=== PATIENT | female | born 1975 | race African-American/Black ===

== ENCOUNTER 2019-02-25 10:08 | Emergency (ER) | payer OTHER ==
[2019-02-25 10:15] VITALS: BP 147/59; PULSE 68; TEMP 97.6; BMI 27.4
[2019-02-25] MEDS ORDERED: ACETAMINOPHEN 1000 MG/100 ML VIAL (NON FORMULARY) IVPB ONE (10:41)
[2019-02-25] MEDS ORDERED: ACETAMINOPHEN 500 MG TABLET (FP) PO ONE (10:53)
[2019-02-25] MEDS ORDERED: ACETAMINOPHEN 325 MG TABLET (FP) ONE (10:57)
--- NOTE | 2019-02-25 11:22 | PDOC ---
History of Present Illness - General Chief Complaint: Headache Stated Complaint: HEADACHE Time Seen by Provider: 02/25/19 10:21 Exam Limitations: No Limitations - History of Present Illness Initial Comments: 02/25/19 11:05 43-year-old female presents the emergency room with complaints of frontal throbbing pressure to her forehead for The past week and blurry vision when using her new reading glasses. Patient otherwise does not complain of dizziness , nausea, visual changes 1 not reading, fever, chills or my head injury, dizziness, neck pain ear pain or dental pain. Patient states has taken nothing for the above and decided to come to the ER today. Timing/Duration: reports: 1 week Severity: Yes: mild Associated Symptoms: reports: vision changes (when using reading glasses), other (headaches) Past History - Travel Traveled outside of the country in the last 30 days: No Close contact w/someone who was outside of country & ill: No - Past Medical History Allergies/Adverse Reactions: Allergies Allergy/AdvReac Type Severity Reaction Status Date / Time Penicillins Allergy Swelling Verified 12/09/15 14:03 Home Medications: Ambulatory Orders Famotidine [Pepcid -] 40 mg PO DAILY #10 tablet 09/27/14 Metformin HCl [Glucophage] 500 mg PO DAILY 01/09/15 Quinapril HCl [Accupril -] 20 mg PO DAILY 12/09/15 Gabapentin [Neurontin -] 100 mg PO HS 12/10/15 Sertraline HCl [Zoloft -] 100 mg PO DAILY 12/10/15 Metronidazole [Flagyl] 500 mg PO TID #21 tablet 12/13/15 levoFLOXacin [Levofloxacin] 500 mg PO DAILY #7 ml 12/13/15 oxyCODONE HCL [Roxicodone -] 5 mg PO Q4H PRN #30 tablet 12/13/15 Cancer: No COPD: No Diabetes: Yes HTN: Yes - Reproductive History (#): 2 Para: 2 - Immunization History Immunization Up to Date: No - Suicide/Smoking/Psychosocial Hx Smoking History: Never smoked Have you smoked in the past 12 months: No Information on smoking cessation initiated: No Hx Alcohol Use: No Drug/Substance Use Hx: No Substance Use Type: None Hx Substance Use Treatment: No Patient Lives Alone: No Lives with/in: spouse/SO Neuro Specific PMHX - Complaint Specific PMHX Other Neuro History: headache Review of Systems - Review of Systems Able to Perform ROS?: Yes Constitutional: No: Symptoms Reported HEENTM: Yes: Blurred Vision Respiratory: No: Symptoms reported Cardiac (ROS): No: Symptoms Reported ABD/GI: No: Symptoms Reported : No: Symptoms Reported Musculoskeletal: No: Symptoms Reported Integumentary: No: Symptoms Reported Neurological: Yes: Headache. No: Numbness, Paresthesia, Weakness, Dizziness Hematologic/Lymphatic: No: Symptoms Reported *Physical Exam - Vital Signs Last Vital Signs Temp Pulse Resp BP Pulse Ox 97.6 F 68 18 147/59 L 100 02/25/19 10:12 02/25/19 10:12 02/25/19 10:12 02/25/19 10:12 02/25/19 10:12 - Physical Exam General Appearance: Yes: Nourished, Appropriately Dressed. No: Apparent Distress HEENT: positive: EOMI, BETTY, TMs Normal, Pharynx Normal. negative: Pale Conjunctivae Neck: positive: Normal Thyroid, Supple Respiratory/Chest: positive: Lungs Clear, Normal Breath Sounds. negative: Respiratory Distress, Accessory Muscle Use Cardiovascular: positive: Regular Rhythm, Regular Rate. negative: Murmur Gastrointestinal/Abdominal: positive: Soft. negative: Tenderness Integumentary: positive: Normal Color, Warm Neurologic: positive: Motor Strength 5/5 (ambulatory) ED Treatment Course - RADIOLOGY Radiology Studies Ordered: Category Date Time Status HEAD CT WITHOUT CONTRAST [CT] Stat CT Scan 02/25/19 10:40 Ordered - Medications Given in the ED: ED Medications Discontinued Medications Generic Name Dose Route Start Last Admin Trade Name Anh PRN Reason Stop Dose Admin Acetaminophen 1,000 mg 02/25/19 10:41 02/25/19 10:58 Ofirmev Injection - IVPB 02/25/19 10:42 Not Given ONCE ONE Acetaminophen 975 mg 02/25/19 10:53 02/25/19 10:57 Tylenol - PO 02/25/19 10:54 975 mg ONCE ONE Administration Medical Decision Making - Medical Decision Making 02/25/19 11:00 chief complaint: Frontal throbbing pressure for the past week without aggravating or alleviating factors but also does complain of blurry vision while using her new reading glasses exam: No neuro focal deficit no ENT involvement, vital signs stable. Plan: Urine culture was Tylenol and head CT 02/25/19 11:34 Laboratory Tests 02/25/19 10:48 Urine HCG, Qual Negative 02/25/19 12:02 T shows no evidence of acute infarction, and canal hemorrhage, edema midline shift mass effect or skull fracture. Patient states feeling better after receiving Tylenol. Will discharge patient home with recommendations to continue with Tylenol *DC/Admit/Observation/Transfer Diagnosis at time of Disposition: Headache - Discharge Dispostion Disposition: HOME Condition at time of disposition: Improved - Referrals - Patient Instructions Printed Discharge Instructions: DI for Hormonal and Tension Headaches Additional Instructions: I recommend taking Tylenol 975-1000 mg every 8 hours for headache. Please follow-up with your doctor as needed and return to ED if symptoms worsen. - Post Discharge Activity
[2019-02-25 11:25] LABS: EPI CELLS 17.7 /HPF (0-5/HPF); URINE APPEARANCE CLOUDY; URINE BILIRUBIN NEGATIVE (NEGATIVE); URINE CASTS 21 /lpf (0-8); URINE COLOR YELLOW; URINE GLUCOSE (UA) NEGATIVE (NEGATIVE); URINE KETONE NEGATIVE (NEGATIVE); URINE LEUK ESTERASE 2+ (NEGATIVE); URINE NITRITE NEGATIVE (NEGATIVE); URINE PROTEIN 1+ (NEGATIVE); URINE RBC 2 /hpf (0-4); URINE UROBILINOGEN 0.2 mg/dL (0.2-1.0); URINE WBC 84 /hpf (0-5)
[2019-02-25 11:26] LABS: HCG,QUALITATIVE URINE Negative
== END 2019-02-25 12:09 | disposition home or self-care (01) ==
LOC: JER 10:08
DX: R51 Headache (principal); I10 Essential (primary) hypertension; E11.9 Type 2 diabetes mellitus without complications; Z79.84 Long term (current) use of oral hypoglycemic drugs
CPT/HCPCS: 70450-TC; 81003; 84703; 99282-25

== ENCOUNTER 2019-11-21 09:27 | Emergency (ER) | payer OTHER ==
[2019-11-21 09:36] VITALS: TEMP 98; BMI 30.9
[2019-11-21 10:12] VITALS: BP 131/73; PULSE 69
--- NOTE | 2019-11-21 10:34 | PDOC ---
History of Present Illness - General Chief Complaint: Blood Pressure Problem Stated Complaint: HYPERTENSION Time Seen by Provider: 11/21/19 09:52 History Source: Patient Exam Limitations: No Limitations - History of Present Illness Initial Comments: 11/21/19 10:17 43-year-old female presents to the ED with c/o intermittent since September and today felt dizzy while in kitchen and took her bp which was 156/105. Pt states was on BP meds last year but stopped over 6 months since her blood work and bp were well controlled and she began to diet. Pt denies headache, nausea, cp, fever, abd pain, urinary or bowel complaints. Is this a multiple visit Asthma Patient?: No Timing/Duration: intermittent Severity: mild Modifying Factors: improves with: other Associated Symptoms: reports: other (dizziness) Past History - Travel Traveled outside of the country in the last 30 days: No Close contact w/someone who was outside of country & ill: No - Past Medical History Allergies/Adverse Reactions: Allergies Allergy/AdvReac Type Severity Reaction Status Date / Time Penicillins Allergy Swelling Verified 11/21/19 09:32 Home Medications: Ambulatory Orders Albuterol Sulfate Inhaler - [Ventolin Hfa Inhaler -] 1 - 2 inh PO Q4H PRN Mometasone/Formoterol [Dulera 100 Mcg/5 Mcg Inhaler] 2 inh IH BID 11/21/19 Anemia: Yes Cancer: No COPD: No Diabetes: Yes HTN: Yes (not on meds) - Surgical History Gastric Stapling: Yes - Reproductive History (#): 2 Para: 2 - Immunization History Immunization Up to Date: No - Psycho Social/Smoking Cessation Hx Smoking History: Never smoked Have you smoked in the past 12 months: No Hx Alcohol Use: No Drug/Substance Use Hx: No Substance Use Type: None Hx Substance Use Treatment: No Patient Lives Alone: No Lives with/in: spouse/SO Review of Systems - Review of Systems Able to Perform ROS?: No Is the patient limited Malagasy proficient: No Constitutional: No: Symptoms Reported HEENTM: No: Symptoms Reported Respiratory: No: Symptoms reported Cardiac (ROS): Yes: Symptoms Reported. No: Lightheadedness ABD/GI: No: Symptoms Reported : No: Symptoms Reported Musculoskeletal: No: Symptoms Reported Integumentary: No: Symptoms Reported Neurological: Yes: Dizziness. No: Headache, Numbness, Weakness *Physical Exam - Vital Signs Last Vital Signs Temp Pulse Resp BP Pulse Ox 98 F 69 18 131/73 100 11/21/19 09:30 11/21/19 10:11 11/21/19 10:11 11/21/19 10:11 11/21/19 10:11 - Physical Exam General Appearance: Yes: Nourished, Appropriately Dressed. No: Apparent Distress HEENT: positive: EOMI, BETTY, TMs Normal, Pharynx Normal. negative: Pale Conjunctivae Neck: positive: Normal Thyroid, Supple Respiratory/Chest: positive: Lungs Clear, Normal Breath Sounds. negative: Respiratory Distress, Accessory Muscle Use Cardiovascular: positive: Regular Rhythm, Regular Rate. negative: Murmur Gastrointestinal/Abdominal: positive: Soft. negative: Tenderness Integumentary: positive: Normal Color, Warm, Moist Neurologic: positive: Motor Strength 5/5 (ambulatory) Heart Score/ECG Review - ECG Intrepretation Rhythm: Regular Rhythm (nsr at 62, no st elevation or depression) Medical Decision Making - Medical Decision Making 11/21/19 10:45 Chief complaint: Here for blood pressure check secondary to feeling dizzy. Patient has no other complaints and last seen her GP in early September. Patient states no medication adjustment at that time but states dizziness started shortly thereafter which is intermittent without aggravating or alleviating factors. Patient asymptomatic since arrival Exam: Patient on no neurofocal deficits vital signs stable, patient negative Hallpike's, EKG normal sinus rhythm care. [facility] 92 plan: Discharge home and recommend to follow-up with GP for a 3-month checkup 11/21/19 10:46 Discharge - Discharge Information Problems reviewed: Yes Clinical Impression/Diagnosis: Dizziness Condition: Improved - Follow up/Referral Referrals: Mann Cardenas MD [Primary Care Provider] - - Patient Discharge Instructions Patient Printed Discharge Instructions: Getting to the Heart of a Healthful Diet Additional Instructions: Continue to follow a low-fat and low sugar diet. Patient is to follow-up with her primary care physician for repeat labs and physical. - Post Discharge Activity
--- NOTE | 2019-11-21 14:07 | EKG ---
Test Reason : Blood Pressure : / mmHG Vent. Rate : 062 BPM Atrial Rate : 062 BPM P-R Int : 178 ms QRS Dur : 080 ms QT Int : 390 ms P-R-T Axes : 049 039 031 degrees QTc Int : 395 ms NORMAL SINUS RHYTHM NORMAL ECG Confirmed by MD BOSCH GREGORY ([id number]) on 11/21/2019 2:07:27 PM Referred By: Confirmed By:STEVEN BOSCH MD
== END 2019-11-21 11:03 | disposition home or self-care (01) ==
LOC: JER 09:27
DX: I10 Essential (primary) hypertension (principal); E11.9 Type 2 diabetes mellitus without complications; Z86.2 Personal history of diseases of the blood and blood-forming organs and certain disorders involving the immune mechanism; Z88.0 Allergy status to penicillin
CPT/HCPCS: 82962; 93005; 93010; 99284-25

== ENCOUNTER 2021-01-22 11:03 | Emergency (ER) | payer OTHER ==
[2021-01-22 11:25] VITALS: BP 135/73; PULSE 77; TEMP 98.1; BMI 32.4
== END 2021-01-22 12:40 | disposition home or self-care (01) ==
LOC: JER 11:03
DX: J31.0 Chronic rhinitis (principal); Z11.52 Encounter for screening for COVID-19
CPT/HCPCS: 99283-25; C9803; U0003; U0005

== ENCOUNTER 2021-09-15 18:10 | Emergency (ER) | payer OTHER ==
[2021-09-15 18:35] VITALS: BP 143/64; PULSE 63; TEMP 98.5; BMI 31.8
== END 2021-09-15 20:55 | disposition home or self-care (01) ==
LOC: JER 18:10
DX: U07.1 COVID-19 (principal)
CPT/HCPCS: 99283-25; C9803; U0003; U0005

== ENCOUNTER 2021-10-12 11:39 | Observation (INO) | payer OTHER ==
[2021-10-12 12:21] VITALS: BMI 31.8
[2021-10-12 16:41] LABS: EPI CELLS 25 /uL (0-25.1); HYALINE CASTS 3 /uL (0-3.1); URINE APPEARANCE CLEAR; URINE BACTERIA 179 /uL (0-1359); URINE BILIRUBIN NEGATIVE (NEGATIVE); URINE COLOR YELLOW; URINE GLUCOSE (UA) NEGATIVE (NEGATIVE); URINE KETONE NEGATIVE (NEGATIVE); URINE LEUK ESTERASE TRACE (NEGATIVE); URINE NITRITE NEGATIVE (NEGATIVE); URINE PROTEIN NEGATIVE (NEGATIVE); URINE RBC 8 /uL (0-23.9); URINE UROBILINOGEN 0.2 mg/dL (0.2-1.0); URINE WBC 63 /uL (0-25.8)
[2021-10-12 16:45] LABS: CHLORIDE 104 mmol/L (98-107); SODIUM 137 mmol/L (136-145)
[2021-10-12 16:48] LABS: ALBUMIN 3.4 g/dl (3.4-5.0); ANION GAP 8 MMOL/L (8-16); BLOOD UREA NITROGEN 14.8 mg/dL (7-18); CALCIUM 9.1 mg/dL (8.5-10.1); CO2 25 mmol/L (21-32); GLUCOSE,RANDOM 81 mg/dL (74-106)
[2021-10-12 16:51] LABS: CHOLESTEROL 217 mg/dL (50-200); CREATININE 0.6 mg/dL (0.55-1.3); SGOT/AST 51 U/L (15-37); SGPT/ALT 56 U/L (13-61); TRIGLYCERIDES 90 mg/dL (0-150)
[2021-10-12 16:52] LABS: BILIRUBIN,TOTAL 0.4 mg/dL (0.2-1); LDL CHOLESTEROL (ONLY SJRH) 126 mg/dL (5-100); TOT PROT 7.8 g/dl (6.4-8.2)
[2021-10-12 16:54] LABS: ALK PHOS 106 U/L (45-117); HDL CHOLESTEROL 76 mg/dL (40-60)
[2021-10-12 17:20] LABS: HEMATOCRIT 37.5 % (32.4-45.2); MCH 26.9 pg (25.7-33.7); MCHC 32.1 g/dl (32.0-36.0); MEAN CELL VOLUME 83.6 fl (80-96); MEAN PLT VOLUME 10.9 fl (7.5-11.1); PLATELET COUNT 214 10^3/uL (134-434); RBC 4.48 M/mm3 (3.60-5.2); RDW 13.6 % (11.6-15.6)
[2021-10-12 18:06] LABS: ANISOCYTOSIS 1+; MACROCYTOSIS 0; PLATELET ESTIMATE NORMAL
[2021-10-13 01:50] VITALS: PULSE 65
[2021-10-13 07:38] LABS: BASO % 0.2 % (0-2.0); EOS % 0.9 % (0-4.5); HEMATOCRIT 37.8 % (32.4-45.2); HEMOGLOBIN 12.1 GM/dL (10.7-15.3); LYMPH % 35.5 % (8-40); MCH 26.7 pg (25.7-33.7); MCHC 31.9 g/dl (32.0-36.0); MEAN CELL VOLUME 83.5 fl (80-96); MEAN PLT VOLUME 10.6 fl (7.5-11.1); MONO % 6.1 % (3.8-10.2); NEUT % 57.3 % (42.8-82.8); PLATELET COUNT 200 10^3/uL (134-434); RBC 4.53 M/mm3 (3.60-5.2); RDW 13.3 % (11.6-15.6); WHITE BLOOD COUNT 5.9 K/mm3 (4.0-10.0)
[2021-10-13 08:05] LABS: INR 1.06 (0.83-1.09); PROTHROMBIN TIME (PATIENT) 12.4 SEC (9.7-13.0)
[2021-10-13 08:08] LABS: ACTIVATED PTT 30.5 SECONDS (25.2-36.5); CALCIUM 8.9 mg/dL (8.5-10.1)
[2021-10-13 08:09] LABS: ALBUMIN 3.1 g/dl (3.4-5.0); BLOOD UREA NITROGEN 12.8 mg/dL (7-18); MAGNESIUM 2.2 mg/dL (1.8-2.4)
[2021-10-13 08:12] LABS: CREATININE 0.7 mg/dL (0.55-1.3); PHOSPHOROUS 4.4 mg/dL (2.5-4.9)
[2021-10-13 08:14] LABS: BILIRUBIN,TOTAL 0.5 mg/dL (0.2-1)
[2021-10-13 09:43] VITALS: BP 112/71; TEMP 97.4
[2021-10-13] MEDS ORDERED: ENOXAPARIN NA (PORCINE) 40 MG/0.4 ML DISP.SYRIN SQ SCH (10:00)
[2021-10-13 11:20] LABS: BASO % 0.7 % (0-2.0); EOS % 0.7 % (0-4.5); HEMATOCRIT 36.6 % (32.4-45.2); HEMOGLOBIN 11.8 GM/dL (10.7-15.3); LYMPH % 32.5 % (8-40); MCH 26.7 pg (25.7-33.7); MCHC 32.2 g/dl (32.0-36.0); MEAN CELL VOLUME 83.1 fl (80-96); MEAN PLT VOLUME 9.8 fl (7.5-11.1); MONO % 7.8 % (3.8-10.2); NEUT % 58.3 % (42.8-82.8); PLATELET COUNT 209 10^3/uL (134-434); RDW 13.1 % (11.6-15.6); WHITE BLOOD COUNT 5.7 K/mm3 (4.0-10.0)
== END 2021-10-13 12:20 | disposition home or self-care (01) ==
LOC: JER 11:39 → INTOOBSV 18:02 → JERBED 18:02
PROVIDERS: ADMIT Internal Medicine; ATTEND Internal Medicine
DX: I67.4 Hypertensive encephalopathy (principal); E11.9 Type 2 diabetes mellitus without complications; D72.829 Elevated white blood cell count, unspecified; K80.20 Calculus of gallbladder without cholecystitis without obstruction; I10 Essential (primary) hypertension; Z86.16 Personal history of COVID-19; Z98.84 Bariatric surgery status; E66.8 Other obesity; Z68.31 Body mass index [BMI] 31.0-31.9, adult; Z88.0 Allergy status to penicillin
CPT/HCPCS: 36415; 70450-TC; 71046-TC-FY; 80053; 80061; 81003; 82550; 82553; 82962; 83735; 84100; 84443; 84484; 85025; 85610; 85730; 93005; 93010; 93880-TC; 99285-25; C9803; G0378; U0003; U0005

== ENCOUNTER 2021-11-24 18:24 | Emergency (ER) | payer SELFPAY ==
[2021-11-24 18:43] VITALS: BP 123/70; PULSE 79; TEMP 97.6; BMI 31.8
[2021-11-24] MEDS ORDERED: ACETAMINOPHEN 1000 MG/100 ML BAG IVPB ONE (19:24)
[2021-11-24] MEDS ORDERED: ONDANSETRON 4 MG/2 ML VIAL IVPUSH ONE (19:24)
[2021-11-24] MEDS ORDERED: SODIUM CHLORIDE 1,000 ML IV STA (19:24)
[2021-11-24] MEDS ORDERED: FAMOTIDINE 20 MG/50 ML IVPB 20 MG/50 ML MG IVPB ONE ×2 (19:25→19:29)
[2021-11-24] MEDS ORDERED: ONDANSETRON 4 MG/2 ML VIAL ONE (19:29)
[2021-11-24] MEDS ORDERED: ACETAMINOPHEN INJECTION 100 ML IVPB ONE (19:29)
[2021-11-24 20:30] LABS: INR 1.11 (0.83-1.09); PROTHROMBIN TIME (PATIENT) 12.8 SEC (9.7-13.0)
[2021-11-24 20:37] LABS: ALBUMIN 3.8 g/dl (3.4-5.0); CALCIUM 9.3 mg/dL (8.5-10.1)
[2021-11-24 20:38] LABS: BLOOD UREA NITROGEN 16.4 mg/dL (7-18)
[2021-11-24 20:40] LABS: CREATININE 0.8 mg/dL (0.55-1.3)
[2021-11-24 20:42] LABS: BILIRUBIN,TOTAL 0.3 mg/dL (0.2-1); TOT PROT 8.2 g/dl (6.4-8.2)
[2021-11-24 22:30] LABS: BASO % 0.2 % (0-2.0); HEMATOCRIT 35.8 % (32.4-45.2); HEMOGLOBIN 11.4 GM/dL (10.7-15.3); LYMPH % 7.4 % (8-40); MCH 26.4 pg (25.7-33.7); MCHC 31.8 g/dl (32.0-36.0); MEAN CELL VOLUME 83.2 fl (80-96); MEAN PLT VOLUME 9.6 fl (7.5-11.1); MONO % 4.6 % (3.8-10.2); NEUT % 87.8 % (42.8-82.8); PLATELET COUNT 258 10^3/uL (134-434); RDW 13.5 % (11.6-15.6); WHITE BLOOD COUNT 12.2 K/mm3 (4.0-10.0)
== END 2021-11-24 23:17 | disposition home or self-care (01) ==
LOC: JER 18:24
PROC: 3E033NZ Introduction of Analgesics, Hypnotics, Sedatives into Peripheral Vein, Percutaneous Approach (ICD-10-PCS; principal; 2021-11-24)
PROC: 3E033GC Introduction of Other Therapeutic Substance into Peripheral Vein, Percutaneous Approach (ICD-10-PCS; 2021-11-24)
PROC: 3E033GC Introduction of Other Therapeutic Substance into Peripheral Vein, Percutaneous Approach (ICD-10-PCS; 2021-11-24)
PROC: 3E0337Z Introduction of Electrolytic and Water Balance Substance into Peripheral Vein, Percutaneous Approach (ICD-10-PCS; 2021-11-24)
DX: R10.9 Unspecified abdominal pain (principal)
CPT/HCPCS: 36415; 74177-TC; 80053; 83690; 84703; 85025; 85610; 99285-25; Q9967

== ENCOUNTER 2022-02-18 03:15 | Emergency (ER) | payer OTHER ==
[2022-02-18 03:31] VITALS: BMI 32.6
[2022-02-18] MEDS ORDERED: MAG HYDROX/AL HYDROX/SIMETH 30 ML UNIT-DOSE CUP PO ONE (03:55)
[2022-02-18] MEDS ORDERED: FAMOTIDINE 20 MG/50 ML IVPB 20 MG/50 ML MG IVPB ONE (03:55)
[2022-02-18] MEDS ORDERED: SODIUM CHLORIDE 0.9% 500 ML INFUS.BAG IV ONE (04:29)
[2022-02-18] MEDS ORDERED: FAMOTIDINE 10 MG/ML VIAL IVPB ONE (04:30)
[2022-02-18] MEDS ORDERED: MAG HYDROX/AL HYDROX/SIMETH 30 ML UNIT-DOSE CUP ONE (04:30)
[2022-02-18 04:42] LABS: BASO % 0.3 % (0-2.0); EOS % 0.8 % (0-4.5); HEMATOCRIT 35.1 % (32.4-45.2); HEMOGLOBIN 11.8 GM/dL (10.7-15.3); LYMPH % 27.4 % (8-40); MCH 27.6 pg (25.7-33.7); MCHC 33.5 g/dl (32.0-36.0); MEAN CELL VOLUME 82.5 fl (80-96); MEAN PLT VOLUME 9.7 fl (7.5-11.1); MONO % 5.6 % (3.8-10.2); NEUT % 65.9 % (42.8-82.8); PLATELET COUNT 273 10^3/uL (134-434); RBC 4.26 M/mm3 (3.60-5.2); RDW 13.5 % (11.6-15.6); WHITE BLOOD COUNT 8.9 K/mm3 (4.0-10.0)
[2022-02-18 04:46] LABS: EPI CELLS 17 /uL (0-25.1); HYALINE CASTS 1 /uL (0-3.1); URINE APPEARANCE CLEAR; URINE BACTERIA 85 /uL (0-1359); URINE BILIRUBIN NEGATIVE (NEGATIVE); URINE COLOR YELLOW; URINE GLUCOSE (UA) NEGATIVE (NEGATIVE); URINE KETONE NEGATIVE (NEGATIVE); URINE LEUK ESTERASE TRACE (NEGATIVE); URINE NITRITE NEGATIVE (NEGATIVE); URINE PROTEIN NEGATIVE (NEGATIVE); URINE RBC 11 /uL (0-23.9); URINE UROBILINOGEN 0.2 mg/dL (0.2-1.0); URINE WBC 25 /uL (0-25.8)
[2022-02-18] MEDS ORDERED: ACETAMINOPHEN 1000 MG/100 ML BAG IVPB ONE (04:58)
[2022-02-18 05:05] LABS: ALBUMIN 3.4 g/dl (3.4-5.0); BLOOD UREA NITROGEN 14.5 mg/dL (7-18); MAGNESIUM 2.4 mg/dL (1.8-2.4)
[2022-02-18 05:07] LABS: CREATININE 0.9 mg/dL (0.55-1.3)
[2022-02-18 05:09] LABS: BILIRUBIN,TOTAL 0.3 mg/dL (0.2-1); TOT PROT 7.4 g/dl (6.4-8.2)
[2022-02-18] MEDS ORDERED: ACETAMINOPHEN INJECTION 100 ML IVPB ONE (05:10)
[2022-02-18 11:02] VITALS: BP 139/84; PULSE 57; TEMP 97
== END 2022-02-18 11:04 | disposition home or self-care (01) ==
LOC: JER 03:15
PROC: 3E0333Z Introduction of Anti-inflammatory into Peripheral Vein, Percutaneous Approach (ICD-10-PCS; principal; 2022-02-18)
PROC: 3E033GC Introduction of Other Therapeutic Substance into Peripheral Vein, Percutaneous Approach (ICD-10-PCS; 2022-02-18)
DX: R10.84 Generalized abdominal pain (principal)
CPT/HCPCS: 36415; 74177-TC; 80053; 81003; 83690; 83735; 84703; 85025; 87086; 96374; 96375; 99285-25; Q9967

== ENCOUNTER 2023-05-19 16:03 | Emergency (ER) | payer OTHER ==
[2023-05-19 16:16] VITALS: RESP 16; BMI 31.5
[2023-05-19 17:51] LABS: BASO % 0.1 % (0-2.0); HEMATOCRIT 33.8 % (32.4-45.2); HEMOGLOBIN 11.1 GM/dL (10.7-15.3); LYMPH % 34.2 % (8-40); MCH 26.3 pg (25.7-33.7); MCHC 32.8 g/dl (32.0-36.0); MEAN CELL VOLUME 80.4 fl (80-96); MONO % 6.8 % (3.8-10.2); NEUT % 57.9 % (42.8-82.8); PLATELET COUNT 228 10^3/uL (134-434); RBC 4.21 M/mm3 (3.60-5.2); RDW 14.4 % (11.6-15.6); WHITE BLOOD COUNT 6.7 K/mm3 (4.0-10.0)
[2023-05-19 18:26] LABS: POTASSIUM 4.1 mmol/L (3.5-5.1)
[2023-05-19 18:30] LABS: ALBUMIN 3.5 g/dl (3.4-5.0); BLOOD UREA NITROGEN 14.8 mg/dL (7-18)
[2023-05-19 18:31] LABS: CREATININE 0.8 mg/dL (0.55-1.3)
[2023-05-19 18:34] LABS: BILIRUBIN,TOTAL 0.3 mg/dL (0.2-1); TOT PROT 7.4 g/dl (6.4-8.2)
[2023-05-19 19:39] VITALS: BP 147/79; PULSE 88; TEMP 97.9
== END 2023-05-19 20:16 | disposition home or self-care (01) ==
LOC: JER 16:03
DX: I16.0 Hypertensive urgency (principal)
CPT/HCPCS: 36415; 70450-TC; 80053; 80061; 83605; 84484; 85025; 93005; 93010; 99285-25

== ENCOUNTER 2023-10-08 17:46 | Emergency (ER) | payer OTHER ==
[2023-10-08 18:17] VITALS: TEMP 98; BMI 29.6
[2023-10-08] MEDS ORDERED: SODIUM CHLORIDE 0.9% 500 ML INFUS.BAG IV ONE (22:00)
[2023-10-08 22:03] LABS: BASO % 0.3 % (0-2.0); EOS % 0.9 % (0-4.5); HEMATOCRIT 34.5 % (32.4-45.2); HEMOGLOBIN 11.1 GM/dL (10.7-15.3); LYMPH % 36.3 % (8-40); MCH 26.6 pg (25.7-33.7); MCHC 32.3 g/dl (32.0-36.0); MEAN CELL VOLUME 82.2 fl (80-96); MEAN PLT VOLUME 9.6 fl (7.5-11.1); MONO % 7.3 % (3.8-10.2); NEUT % 55.2 % (42.8-82.8); PLATELET COUNT 224 10^3/uL (134-434); RDW 13.9 % (11.6-15.6)
[2023-10-08 22:16] LABS: POTASSIUM 4.2 mmol/L (3.5-5.1)
[2023-10-08 22:18] LABS: CALCIUM 8.8 mg/dL (8.5-10.1)
[2023-10-08 22:19] LABS: ALBUMIN 3.2 g/dl (3.4-5.0); BLOOD UREA NITROGEN 12.6 mg/dL (7-18); MAGNESIUM 2.4 mg/dL (1.8-2.4)
[2023-10-08 22:21] LABS: CREATININE 0.7 mg/dL (0.55-1.3)
[2023-10-08 22:22] LABS: BILIRUBIN,TOTAL 0.2 mg/dL (0.2-1); TOT PROT 6.9 g/dl (6.4-8.2)
[2023-10-08 22:36] LABS: URINE APPEARANCE CLEAR; URINE BILIRUBIN NEGATIVE (NEGATIVE); URINE COLOR YELLOW; URINE GLUCOSE (UA) NEGATIVE (NEGATIVE); URINE KETONE NEGATIVE (NEGATIVE); URINE LEUK ESTERASE NEGATIVE (NEGATIVE); URINE NITRITE NEGATIVE (NEGATIVE); URINE PROTEIN NEGATIVE (NEGATIVE)
[2023-10-08 22:38] LABS: HCG,QUALITATIVE URINE Negative
[2023-10-09 01:55] VITALS: BP 131/70; PULSE 60; RESP 18
== END 2023-10-09 02:31 | disposition home or self-care (01) ==
LOC: JER 17:46
DX: R42 Dizziness and giddiness (principal); H53.8 Other visual disturbances; R51.9 Headache, unspecified
CPT/HCPCS: 36415; 70450-TC; 80053; 81003; 83735; 84484; 84703; 85025; 87086; 93005; 93010; 99285-25

== ENCOUNTER 2023-11-04 14:19 | Emergency (ER) | payer OTHER ==
[2023-11-04 14:34] VITALS: BP 143/69; PULSE 66; RESP 20; TEMP 98.1; BMI 29.6
[2023-11-04 16:34] LABS: PH,URINE 5.5 (5.0-8.0); URINE APPEARANCE CLEAR; URINE BILIRUBIN NEGATIVE (NEGATIVE); URINE COLOR YELLOW; URINE GLUCOSE (UA) NEGATIVE (NEGATIVE); URINE KETONE NEGATIVE (NEGATIVE); URINE LEUK ESTERASE NEGATIVE (NEGATIVE); URINE NITRITE NEGATIVE (NEGATIVE); URINE PROTEIN NEGATIVE (NEGATIVE); URINE UROBILINOGEN 0.2 mg/dL (0.2-1.0)
[2023-11-04 16:36] LABS: BASO % 0.5 % (0-2.0); EOS % 0.8 % (0-4.5); HEMOGLOBIN 12.2 GM/dL (10.7-15.3); LYMPH % 41.1 % (8-40); MCH 26.2 pg (25.7-33.7); MCHC 32.2 g/dl (32.0-36.0); MEAN CELL VOLUME 81.3 fl (80-96); MEAN PLT VOLUME 9.8 fl (7.5-11.1); MONO % 8.4 % (3.8-10.2); NEUT % 49.2 % (42.8-82.8); PLATELET COUNT 269 10^3/uL (134-434); RBC 4.67 M/mm3 (3.60-5.2); RDW 14.4 % (11.6-15.6); WHITE BLOOD COUNT 6.1 K/mm3 (4.0-10.0)
[2023-11-04 16:51] LABS: POTASSIUM 4.7 mmol/L (3.5-5.1)
[2023-11-04 16:53] LABS: ALBUMIN 3.5 g/dl (3.4-5.0); BLOOD UREA NITROGEN 14.8 mg/dL (7-18)
[2023-11-04 16:56] LABS: CREATININE 0.8 mg/dL (0.55-1.3)
[2023-11-04 16:58] LABS: BILIRUBIN,TOTAL 0.4 mg/dL (0.2-1)
== END 2023-11-04 18:05 | disposition home or self-care (01) ==
LOC: JER 14:19
DX: I10 Essential (primary) hypertension (principal); R51.9 Headache, unspecified; R42 Dizziness and giddiness; R07.9 Chest pain, unspecified; R20.8 Other disturbances of skin sensation; Z20.822 Contact with and (suspected) exposure to COVID-19
CPT/HCPCS: 0241U-QW; 36415; 70450-TC; 80053; 81003; 84484; 85025; 87086; 93005; 93010; 99285-25

== ENCOUNTER 2024-03-26 20:42 | Emergency (ER) | payer OTHER ==
[2024-03-26 20:51] VITALS: BP 154/66; PULSE 63; RESP 18; TEMP 98.5; BMI 29.9
== END 2024-03-26 22:42 | disposition home or self-care (01) ==
LOC: JERFT 20:42
DX: J34.89 Other specified disorders of nose and nasal sinuses (principal); R05.9 Cough, unspecified; H04.209 Unspecified epiphora, unspecified side; Z20.822 Contact with and (suspected) exposure to COVID-19
CPT/HCPCS: 0241U-QW; 99283-25

== ENCOUNTER 2024-06-08 17:47 | Emergency (ER) | payer OTHER ==
[2024-06-08 17:56] VITALS: BP 146/87; PULSE 61; RESP 18; TEMP 98.2; BMI 31.5
== END 2024-06-08 20:26 | disposition home or self-care (01) ==
LOC: JER 17:47
DX: H53.8 Other visual disturbances (principal); R51.9 Headache, unspecified
CPT/HCPCS: 99282-25

== ENCOUNTER 2024-08-03 12:21 | Emergency (ER) | payer OTHER ==
[2024-08-03 12:38] VITALS: BP 151/82; PULSE 60; RESP 16; TEMP 98.3; BMI 28.3
[2024-08-03] MEDS ORDERED: LOSARTAN POTASSIUM 50 MG TABLET ONE (13:12)
[2024-08-03] MEDS: LOSARTAN POTASSIUM 50 MG TABLET PO ONE (13:15)
[2024-08-03 14:51] LABS: HIV INTERPRETATION NEGATIVE (NEGATIVE)
== END 2024-08-03 13:36 | disposition home or self-care (01) ==
LOC: JER 12:21
DX: I10 Essential (primary) hypertension (principal)
CPT/HCPCS: 36415; 86803; 87389; 99283-25

== ENCOUNTER 2024-10-08 15:36 | Emergency (ER) | payer OTHER ==
[2024-10-08 15:47] VITALS: BP 144/84; PULSE 62; RESP 18; TEMP 98.5; BMI 30.6
[2024-10-08 17:49] LABS: BASO % 0.2 % (0-2.0); EOS % 0.7 % (0-4.5); HEMATOCRIT 33.3 % (32.4-45.2); HEMOGLOBIN 10.9 GM/dL (10.7-15.3); MCH 26.7 pg (25.7-33.7); MCHC 32.7 g/dl (32.0-36.0); MEAN CELL VOLUME 81.8 fl (80-96); MEAN PLT VOLUME 10.6 fl (7.5-11.1); MONO % 7.9 % (3.8-10.2); NEUT % 68.2 % (42.8-82.8); PLATELET COUNT 211 10^3/uL (134-434); RBC 4.07 M/mm3 (3.60-5.2); RDW 14.1 % (11.6-15.6); WHITE BLOOD COUNT 6.2 K/mm3 (4.0-10.0)
[2024-10-08] MEDS ORDERED: ACETAMINOPHEN INJECTION 100 ML ONE (17:58)
[2024-10-08] MEDS ORDERED: ONDANSETRON 4 MG/2 ML VIAL ONE (17:58)
[2024-10-08 18:02] LABS: POTASSIUM 4.2 mmol/L (3.5-5.1)
[2024-10-08 18:04] LABS: ALBUMIN 3.5 g/dl (3.4-5.0); CALCIUM 8.8 mg/dL (8.5-10.1)
[2024-10-08 18:08] LABS: CREATININE 0.7 mg/dL (0.55-1.3)
[2024-10-08 18:09] LABS: BILIRUBIN,TOTAL 0.3 mg/dL (0.2-1); TOT PROT 7.1 g/dl (6.4-8.2)
[2024-10-08] MEDS: SODIUM CHLORIDE 0.9% 500 ML INFUS.BAG IV ONE (18:09)
[2024-10-08] MEDS: ONDANSETRON 4 MG/2 ML VIAL IVPUSH ONE (18:10)
[2024-10-08] MEDS: ACETAMINOPHEN 1000 MG/100 ML BAG IVPB ONE (18:10)
== END 2024-10-08 19:29 | disposition home or self-care (01) ==
LOC: JER 15:36
PROC: 3E033NZ Introduction of Analgesics, Hypnotics, Sedatives into Peripheral Vein, Percutaneous Approach (ICD-10-PCS; principal; 2024-10-08)
PROC: 3E033GC Introduction of Other Therapeutic Substance into Peripheral Vein, Percutaneous Approach (ICD-10-PCS; 2024-10-08)
DX: R05.9 Cough, unspecified (principal); R10.13 Epigastric pain; R00.1 Bradycardia, unspecified; B34.9 Viral infection, unspecified; Z20.822 Contact with and (suspected) exposure to COVID-19
CPT/HCPCS: 0241U-QW; 36415; 71046-TC-FY; 80053; 84484; 85025; 93005; 93010; 99285-25; J0131

== ENCOUNTER 2025-01-15 17:25 | Emergency (ER) | payer OTHER ==
[2025-01-15 17:32] VITALS: RESP 18; BMI 30.2
[2025-01-15] MEDS ORDERED: ONDANSETRON 4 MG/2 ML VIAL ONE (17:56)
[2025-01-15 18:32] LABS: ABSOLUTE IMMATURE GRANULOCYTES 0.01 x10^3/uL (0.0-0.031); BASOPHILS # 0.01 x10^3/uL (0.01-0.08); EOSINOPHIL % 1.5 % (0.7-5.8); EOSINOPHILS # 0.06 x10^3/uL (0.04-0.36); HEMATOCRIT 38.2 % (34.1-44.9); HEMOGLOBIN 11.6 g/dL (11.2-15.7); MCHC 30.4 g/dl (32.2-35.5); MEAN CELL VOLUME 85.1 fl (79.4-94.8); MEAN PLT VOLUME 11.4 fl (9.4-12.3); MONOCYTE # 0.48 x10^3/uL (0.24-0.86); MONOCYTE % 12.1 % (4.7-12.5); PLATELET COUNT 283 x10^3/uL (182-369); RDW 13.5 % (12.3-16.6)
[2025-01-15] MEDS: LACTATED RINGERS SOLUTION 1000 ML INFUS.BAG IV ONE (18:47)
[2025-01-15] MEDS: ONDANSETRON 4 MG/2 ML VIAL IVPUSH ONE (18:47)
[2025-01-15] MEDS: ACETAMINOPHEN 1000 MG/100 ML BAG IVPB ONE (18:47)
[2025-01-15] MEDS ORDERED: ACETAMINOPHEN INJECTION 100 ML ONE (18:48)
[2025-01-15 18:55] LABS: POTASSIUM 4.2 mmol/L (3.5-5.1)
[2025-01-15 18:57] LABS: ALBUMIN 3.7 g/dl (3.4-5.0)
[2025-01-15 18:58] LABS: BLOOD UREA NITROGEN 10.5 mg/dL (7-18)
[2025-01-15 19:02] LABS: BILIRUBIN,TOTAL 0.3 mg/dL (0.2-1); CREATININE 0.8 mg/dL (0.55-1.3); TOT PROT 7.6 g/dl (6.4-8.2)
[2025-01-15 19:16] LABS: EPI CELLS >36 /uL (0-25.1); HYALINE CASTS 3 /uL (0-3.1); PH,URINE 5.5 (5.0-8.0); URINE APPEARANCE CLOUDY; URINE BACTERIA 1202 /uL (0-1359); URINE BILIRUBIN NEGATIVE (NEGATIVE); URINE COLOR YELLOW; URINE GLUCOSE (UA) NEGATIVE (NEGATIVE); URINE KETONE TRACE (NEGATIVE); URINE LEUK ESTERASE 1+ (NEGATIVE); URINE NITRITE NEGATIVE (NEGATIVE); URINE PROTEIN 1+ (NEGATIVE); URINE UROBILINOGEN 0.2 mg/dL (0.2-1.0); URINE WBC 278 /uL (0-25.8)
[2025-01-15 19:54] LABS: URINE RBC 26.6 /uL (0-23.9)
[2025-01-15] MEDS ORDERED: SULFAMETHOXAZOLE/TRIMETHOPRIM 800MG/160MG D.S. TABLET ONE (20:14)
[2025-01-15] MEDS: SULFAMETHOXAZOLE/TRIMETHOPRIM 800MG/160MG D.S. TABLET PO ONE (20:22)
[2025-01-15 20:34] VITALS: BP 130/76; PULSE 83; TEMP 98.3
== END 2025-01-15 20:34 | disposition home or self-care (01) ==
LOC: JER 17:25
PROC: 3E033NZ Introduction of Analgesics, Hypnotics, Sedatives into Peripheral Vein, Percutaneous Approach (ICD-10-PCS; principal; 2025-01-15)
PROC: 3E033GC Introduction of Other Therapeutic Substance into Peripheral Vein, Percutaneous Approach (ICD-10-PCS; 2025-01-15)
DX: N30.90 Cystitis, unspecified without hematuria (principal); R19.7 Diarrhea, unspecified; R10.9 Unspecified abdominal pain
CPT/HCPCS: 0241U-QW; 36415; 74177-TC; 80053; 81003; 85025; 87086; 99285-25; J0131; Q9967

== ENCOUNTER 2025-05-10 10:28 | Emergency (ER) | payer OTHER ==
[2025-05-10 12:27] LABS: ABSOLUTE IMMATURE GRANULOCYTES 0.01 x10^3/uL (0.0-0.031); BASOPHILS # 0.01 x10^3/uL (0.01-0.08); EOSINOPHIL % 1.0 % (0.7-5.8); EOSINOPHILS # 0.06 x10^3/uL (0.04-0.36); MCHC 32.1 g/dl (32.2-35.5); MEAN CELL VOLUME 83.5 fl (79.4-94.8); MEAN PLT VOLUME 11.6 fl (9.4-12.3); MONOCYTE # 0.52 x10^3/uL (0.24-0.86); MONOCYTE % 8.4 % (4.7-12.5); RDW 13.7 % (12.3-16.6)
[2025-05-10 12:59] VITALS: BP 166/66; PULSE 58; RESP 20; TEMP 98.1; BMI 29.9
[2025-05-10] MEDS: LACTATED RINGERS SOLUTION 1000 ML INFUS.BAG IV ONE (13:00)
[2025-05-10 13:01] LABS: CO2 30.0 mmol/L (21-32); GLUCOSE,RANDOM 87.0 mg/dL (74-106)
[2025-05-10 13:04] LABS: CREATININE 0.6 mg/dL (0.55-1.3); SGOT/AST 27.0 U/L (15-37); SGPT/ALT 30.0 U/L (13-61)
[2025-05-10 13:06] LABS: TOT PROT 7.4 g/dl (6.4-8.2)
[2025-05-10 13:07] LABS: ALK PHOS 118.0 U/L (45-117)
[2025-05-10 13:43] LABS: EPI CELLS 7 /uL (0-25.1); HYALINE CASTS 0 /uL (0-3.1); URINE APPEARANCE CLEAR; URINE BACTERIA 66 /uL (0-1359); URINE BILIRUBIN NEGATIVE (NEGATIVE); URINE COLOR YELLOW; URINE GLUCOSE (UA) NEGATIVE (NEGATIVE); URINE KETONE NEGATIVE (NEGATIVE); URINE LEUK ESTERASE TRACE (NEGATIVE); URINE NITRITE NEGATIVE (NEGATIVE); URINE PROTEIN NEGATIVE (NEGATIVE); URINE RBC 11 /uL (0-23.9); URINE UROBILINOGEN 1.0 mg/dL (0.2-1.0); URINE WBC 21 /uL (0-25.8)
[2025-05-10 14:08] LABS: HCV DIAGNOSTIC IN-HOUSE W/RFLX NON-REACTIVE (NONREACTIVE)
[2025-05-10 22:35] LABS: HIV INTERPRETATION NEGATIVE (NEGATIVE)
== END 2025-05-10 14:30 | disposition home or self-care (01) ==
LOC: JER 10:28
DX: R42 Dizziness and giddiness (principal); R35.0 Frequency of micturition; R10.13 Epigastric pain
CPT/HCPCS: 36415; 80053; 81003; 84443; 84484; 84703; 85025; 86803; 87086; 87389; 93005; 93010; 99283-25

== ENCOUNTER 2025-06-01 08:29 | Emergency (ER) | payer OTHER ==
[2025-06-01 08:37] VITALS: TEMP 98.1; BMI 28.3
[2025-06-01 09:32] LABS: ABSOLUTE IMMATURE GRANULOCYTES 0.01 x10^3/uL (0.0-0.031); BASOPHILS # 0.00 x10^3/uL (0.01-0.08); EOSINOPHIL % 0.4 % (0.7-5.8); EOSINOPHILS # 0.02 x10^3/uL (0.04-0.36); MCHC 30.4 g/dl (32.2-35.5); MEAN CELL VOLUME 87.5 fl (79.4-94.8); MEAN PLT VOLUME 12.1 fl (9.4-12.3); MONOCYTE # 0.34 x10^3/uL (0.24-0.86); MONOCYTE % 6.1 % (4.7-12.5); RDW 13.2 % (12.3-16.6)
[2025-06-01 10:02] LABS: GLUCOSE,RANDOM 84.0 mg/dL (74-106); TOT PROT 7.1 g/dl (6.4-8.2)
[2025-06-01 10:03] LABS: CO2 30.0 mmol/L (21-32)
[2025-06-01 10:05] LABS: ALK PHOS 101.0 U/L (40-150)
[2025-06-01 10:07] LABS: SGOT/AST 25.0 U/L (5-34); SGPT/ALT 27.0 U/L (0-55)
[2025-06-01 10:08] LABS: CREATININE 0.82 mg/dL (0.55-1.3)
[2025-06-01 10:27] LABS: HCV DIAGNOSTIC IN-HOUSE W/RFLX NON-REACTIVE (NONREACTIVE)
[2025-06-01 10:28] LABS: HIV INTERPRETATION NEGATIVE (NEGATIVE)
[2025-06-01] MEDS ORDERED: KETOROLAC TROMETHAMINE 15 MG/ML VIAL ONE (10:37)
[2025-06-01] MEDS: KETOROLAC TROMETHAMINE 15 MG/ML VIAL IVPUSH ONE (10:44)
[2025-06-01] MEDS: SODIUM CHLORIDE 500 ML IV STA (10:44)
[2025-06-01 12:08] VITALS: BP 122/49; PULSE 50; RESP 13
== END 2025-06-01 13:07 | disposition home or self-care (01) ==
LOC: JER 08:29
PROC: 3E0333Z Introduction of Anti-inflammatory into Peripheral Vein, Percutaneous Approach (ICD-10-PCS; principal; 2025-06-01)
PROC: 3E0337Z Introduction of Electrolytic and Water Balance Substance into Peripheral Vein, Percutaneous Approach (ICD-10-PCS; 2025-06-01)
DX: R07.89 Other chest pain (principal)
CPT/HCPCS: 36415; 71046-TC-FY; 80053; 84484; 84703; 85025; 86803; 87389; 93005; 93010; 99284-25